=== PATIENT | male | born 1980 | race Caucasian/White ===

== ENCOUNTER 2024-03-03 19:55 | Emergency (ER) | payer OTHER ==
[~2024-03-03] VITALS: Ht 193 cm; Wt 79.6 kg
[2024-03-03 21:25] LABS: ANION GAP 9 (8-16); BASOPHILS % (AUTO) 0.8 % (0-1); BLOOD UREA NITROGEN 24 MG/DL (7-18); BUN/CREATININE RATIO 33.3 (10.0-20.0); CALCIUM 8.5 MG/DL (8.5-10.1); CHLORIDE 105 MMOL/L (99-107); CREATININE 0.72 MG/DL (0.60-1.10); EOSINOPHILS # (AUTO) 0.1 X10'3 (0-0.9); EOSINOPHILS % (AUTO) 1.3 % (0-6); ETHANOL < 10 MG/DL (<10); GLUCOSE 92 MG/DL (70-104); HEMATOCRIT 35.2 % (42.0-52.0); HEMOGLOBIN 11.9 g/dl (14.0-17.9); LYMPHOCYTES # (AUTO) 1.3 X10'3 (1.1-4.8); LYMPHOCYTES % (AUTO) 25.8 % (21-51); MEAN CORPUSCULAR HEMOGLOBIN 30.5 PG (27.0-31.0); MEAN CORPUSCULAR HGB CONC 33.7 g/dL (33.0-36.5); MEAN CORPUSCULAR VOLUME 90.7 FL (78-98); MONOCYTES # (AUTO) 0.4 X10'3 (0-0.9); MONOCYTES % (AUTO) 6.9 % (2-12); NEUTROPHILS # (AUTO) 3.4 X10'3 (1.8-7.7); NEUTROPHILS % (AUTO) 65.2 % (42-75); PLATELET COUNT 162 X10'3 (140-440); POTASSIUM 3.5 MMOL/L (3.5-5.1); RED BLOOD COUNT 3.88 X10'6 (4.70-6.10); RED CELL DISTRIBUTION WIDTH 13.6 % (11.5-14.5); SODIUM 142 MMOL/L (135-145); TOTAL CARBON DIOXIDE 28.2 MMOL/L (24-32); WHITE BLOOD COUNT 5.2 X10'3 (4.5-11.0); eCRCL 152 ML/MIN; eGFR > 90 ML/MIN
[2024-03-04 06:21] VITALS: BP 111/74; PULSE 68; RESP 18; TEMP 98.6; O2SAT 98
== END 2024-03-04 06:23 | disposition home or self-care (01) ==
LOC: ER 19:56
DX: F19.10 Other psychoactive substance abuse, uncomplicated (principal); F10.129 Alcohol abuse with intoxication, unspecified; Y90.9 Presence of alcohol in blood, level not specified
CPT/HCPCS: 36415; 80048; 80320; 85025; 99285; J7030